=== PATIENT | male | born 1965 | race Caucasian/White ===

== ENCOUNTER 2018-08-09 17:24 | Emergency (ER) | payer OTHER, BC | END 2018-08-09 18:54 | disposition home or self-care (01) | LOC: JERFT 17:24 ==

== ENCOUNTER 2018-08-14 06:32 | Day surgery (SDC) | payer OTHER ==
[2018-08-13 16:55] VITALS: BMI 30.5
[2018-08-14] MEDS ORDERED: BUPIVACAINE LIPOSOME/PF (EXPAREL) 266 MG/20 ML VIAL ONE (07:39)
[2018-08-14] MEDS ORDERED: MIDAZOLAM HCL 2 MG/2 ML SINGLE DOSE VIAL ONE ×2 (07:40)
[2018-08-14] MEDS ORDERED: BUPIVACAINE HCL/PF 0.5% (5MG/ML) 10 ML VIAL ONE (08:07)
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
[2018-08-14] MEDS ORDERED: ceFAZolin SODIUM 1 GM VIAL ONE (08:27)
[2018-08-14] MEDS ORDERED: ceFAZolin SODIUM 1 GM VIAL IVPB ONE (08:38)
[2018-08-14] MEDS ORDERED: PROPOFOL 20 ML ONE ×2 (08:43)
[2018-08-14] MEDS ORDERED: DEXAMETHASONE SOD PHOSPHATE 4 MG/1 ML VIAL ONE (09:23)
--- NOTE | 2018-08-14 09:32 | OP ---
Operative Note - Note: Operative Date: 08/14/18 ([facility]) Pre-Operative Diagnosis: left distal fibula fx Operation: left distal fibula ORIF Post-Operative Diagnosis: Same as Pre-op Surgeon: Gavino Miller [id number] Armor Crewman: Robby Tom Anesthesiologist/MONITOR CAR OPERATOR: Mari Dalal Anesthesia: Local, MAC Estimated Blood Loss (mls): 0 (tourniquet) Operative Report Dictated: Yes
[2018-08-14] MEDS ORDERED: oxyCODONE HCL 5 MG TABLET PO PRN (09:33)
[2018-08-14] MEDS ORDERED: ONDANSETRON 4 MG/2 ML VIAL IVPUSH PRN (09:33)
[2018-08-14] MEDS ORDERED: LACTATED RINGERS SOLUTION 1,000 ML IV SCH (09:45)
--- NOTE | 2018-08-14 10:03 | OP ---
DATE OF OPERATION: 08/14/2018 PREOPERATIVE DIAGNOSIS: Left ankle fracture/distal fibular fracture. POSTOPERATIVE DIAGNOSIS: Left ankle fracture/distal fibular fracture. PROCEDURE: Left ankle open reduction and internal fixation/distal fibular open reduction and internal fixation. SURGEON: Gavino Miller MD SALESPERSON RECREATIONAL VEHICLES: JESS Morales ANESTHESIOLOGIST: ANESTHESIA: Left regional block plus spinal anesthesia plus sedation. DRAINS: None. COMPLICATIONS: None. FLUID REPLACEMENT: Plasma-Lyte 700 mL. SPECIMEN: None. BLOOD LOSS: None. BLOOD GIVEN: None. This patient is a 53-year-old male with the preoperative diagnosis of an acute, recent left ankle distal fibular fracture. After understanding the potential risks, complications, alternatives and benefits of surgery versus nonsurgical treatment, the patient elected to undergo this procedure. Patient was brought to the operating room. Peripheral IV placed. IV sedation given. Two grams of IV Ancef were given. A left regional block was performed, and then, a spinal anesthetic was performed. He was placed into the supine position with ample padding around his left thigh. MAC anesthesia was induced. Left lower extremity was then prepped and draped in sterile fashion, elevated, exsanguinated with an Esmarch bandage and tourniquet inflated to 275 mmHg. The distal fibula was marked out with a marking pen and incision marked out with a marking pen. The incision made with a number-15 scalpel blade. Subcutaneous hemostasis achieved with the Bovie cautery. Dissection done down to the distal fibula. Periosteal incision was made. A subperiosteal dissection was done with a periosteal elevator. This revealed the fracture site. The bone was cleared both distal and proximal to the fracture site. The area was copiously irrigated and washed out and a small curette used to remove hematoma, periosteum, and muscle debris. I then able to do an excellent anatomic reduction, confirmed by AP, lateral, and multiple oblique x-rays. It was held together with the lobster forceps. I then put a lag screw in in standard fashion, first using the 2.6-mm drill bit, then overdrilling the first cortex with a 3.5-mm drill and putting in a fully-threaded bicortical, I think it was a, 24-mm screw. I then removed the clamps. The fracture held. X-rays were taken. There was anatomic reduction. I then put on a Alexander low-profile titanium VariAx pre-contoured distal fibular plate. It was held in place with 2 K-wires. I put in 1 screw proximal to the fracture site, which was 16 mm in length, bicortical and non-locking. Put in 1 unicortical, 16-mm screw distal. It held. X-rays were taken. The position of the hardware and the fracture fragments were quite good. The pins were removed, and then, 2 more unicortical locking screws were placed distal to the fracture site and a total of 4 screws, one non-locking, three locking, all bicortical of 16, 14, 14, and 12 mm in length were placed proximal to the fracture site. It all came together quite nicely. X-rays were taken. The position of the fracture fragments and the hardware was all quite good and confirmed by C-arm fluoroscopy. The area was copiously irrigated and washed out. The periosteum closed over the plate with 2-0 Vicryl. The deep dermal layer closed with 2-0 Vicryl. Final skin reapproximation was done with keith. The area was then washed and dried, covered with Xeroform, 4 x 4, Webril. A 6-inch Ortho-Glass posterior splint was applied and wrapped with 3 Romeo bandages. The tourniquet was taken down after a total tourniquet time of 35 minutes. There were no complications during the case. The patient tolerated the procedure quite well and was brought to the ambulatory recovery room in stable condition. Aby [id number]
[2018-08-14 16:02] VITALS: BP 138/76; PULSE 92; TEMP 98.1
--- NOTE | 2018-08-18 11:30 | EKG ---
Test Reason : Blood Pressure : / mmHG Vent. Rate : 066 BPM Atrial Rate : 066 BPM P-R Int : 142 ms QRS Dur : 094 ms QT Int : 384 ms P-R-T Axes : 013 -05 014 degrees QTc Int : 402 ms NORMAL SINUS RHYTHM NORMAL ECG WHEN COMPARED WITH ECG OF 21-FEB-2003 16:02, NO SIGNIFICANT CHANGE WAS FOUND Confirmed by ARON HOLGUIN MD ([id number]) on 08/18/2018 11:29:57 AM Referred By: Gavino Miller Confirmed By:ARON HOLGUIN MD
== END 2018-08-14 16:15 | disposition home or self-care (01) ==
LOC: JASU-SURG 06:32
PROVIDERS: ATTEND Orthopaedic Surgery
PROC: 0QSK04Z Reposition Left Fibula with Internal Fixation Device, Open Approach (ICD-10-PCS; principal; 2018-08-14 08:00)
DX: S82.62XA Displaced fracture of lateral malleolus of left fibula, initial encounter for closed fracture (principal); X58.XXXA Exposure to other specified factors, initial encounter; Y93.9 Activity, unspecified; Y92.9 Unspecified place or not applicable; Y99.9 Unspecified external cause status
CPT/HCPCS: 27792; C1713; 76000-TC-FY; 93005; 93010; 94760; 97116-GP

== ENCOUNTER 2020-09-04 14:03 | Observation (INO) | payer OTHER ==
[2020-09-04 14:26] VITALS: BMI 32.3
[2020-09-04 15:04] LABS: BASO % 0.7 % (0-2.0); EOS % 0.2 % (0-4.5); HEMATOCRIT 50.3 % (35.4-49); HEMOGLOBIN 17.2 GM/dL (11.7-16.9); LYMPH % 19.9 % (8-40); MCHC 34.3 g/dl (32.0-35.9); MEAN CELL VOLUME 84.5 fl (80-96); MEAN PLT VOLUME 7.5 fl (7.5-11.1); MONO % 6.6 % (3.8-10.2); NEUT % 72.6 % (42.8-82.8); PLATELET COUNT 265 10^3/uL (134-434); RBC 5.95 M/mm3 (4.00-5.60); RDW 13.3 % (11.9-15.9); WHITE BLOOD COUNT 8.6 K/mm3 (4.0-10.0)
[2020-09-04 15:12] LABS: INR 1.1 (0.83-1.09); PROTHROMBIN TIME (PATIENT) 13.3 SEC (9.7-13.0)
[2020-09-04 15:15] LABS: ACTIVATED PTT 27.5 SECONDS (25.2-36.5)
[2020-09-04] MEDS ORDERED: SODIUM CHLORIDE 1,000 ML IV STA (15:16)
[2020-09-04 15:39] LABS: CHLORIDE 110 mmol/L (98-107); SODIUM 141 mmol/L (136-145)
[2020-09-04 15:41] LABS: ALBUMIN 4.6 g/dl (3.4-5.0); ANION GAP 7 MMOL/L (8-16); BLOOD UREA NITROGEN 23.4 mg/dL (7-18); CALCIUM 9.8 mg/dL (8.5-10.1); CO2 25 mmol/L (21-32)
[2020-09-04 15:42] LABS: GLUCOSE,RANDOM 102 mg/dL (74-106)
[2020-09-04 15:45] LABS: CREATININE 1.5 mg/dL (0.55-1.3); SGOT/AST 24 U/L (15-37); SGPT/ALT 51 U/L (13-61)
[2020-09-04 15:46] LABS: BILIRUBIN,TOTAL 0.7 mg/dL (0.2-1); TOT PROT 7.7 g/dl (6.4-8.2)
[2020-09-04 15:47] LABS: ALK PHOS 75 U/L (45-117)
[2020-09-04] MEDS ORDERED: ACETAMINOPHEN 325 MG TABLET (FP) PO PRN (18:21)
[2020-09-04] MEDS ORDERED: SODIUM CHLORIDE 1,000 ML IV SCH (18:30)
[2020-09-04 20:24] LABS: PH,URINE 5.5 (5.0-8.0); URINE APPEARANCE CLOUDY; URINE BILIRUBIN NEGATIVE (NEGATIVE); URINE COLOR YELLOW; URINE GLUCOSE (UA) NEGATIVE (NEGATIVE); URINE KETONE TRACE (NEGATIVE); URINE LEUK ESTERASE NEGATIVE (NEGATIVE); URINE NITRITE NEGATIVE (NEGATIVE); URINE PROTEIN NEGATIVE (NEGATIVE)
[2020-09-04] MEDS ORDERED: ATORVASTATIN CA 40 MG TABLET (FP) ONE (21:32)
[2020-09-04] MEDS ORDERED: ATORVASTATIN CA 40 MG TABLET (FP) PO SCH (22:00)
[2020-09-05 06:57] VITALS: TEMP 97.6
[2020-09-05 08:00] LABS: BASO % 0.9 % (0-2.0); EOS % 1.1 % (0-4.5); HEMATOCRIT 44.6 % (35.4-49); HEMOGLOBIN 15.5 GM/dL (11.7-16.9); LYMPH % 29.6 % (8-40); MCH 29.5 pg (25.7-33.7); MCHC 34.7 g/dl (32.0-35.9); MEAN PLT VOLUME 7.2 fl (7.5-11.1); MONO % 8.3 % (3.8-10.2); NEUT % 60.1 % (42.8-82.8); PLATELET COUNT 226 10^3/uL (134-434); RBC 5.25 M/mm3 (4.00-5.60); RDW 13.2 % (11.9-15.9); WHITE BLOOD COUNT 7.2 K/mm3 (4.0-10.0)
[2020-09-05 08:01] LABS: CHLORIDE 108 mmol/L (98-107); SODIUM 141 mmol/L (136-145)
[2020-09-05 08:22] LABS: ALBUMIN 3.8 g/dl (3.4-5.0); ALK PHOS 67 U/L (45-117); ANION GAP 6 MMOL/L (8-16); BLOOD UREA NITROGEN 22.8 mg/dL (7-18); CALCIUM 9.1 mg/dL (8.5-10.1); CO2 26 mmol/L (21-32); GLUCOSE,RANDOM 94 mg/dL (74-106)
[2020-09-05 08:23] LABS: MAGNESIUM 2.5 mg/dL (1.8-2.4)
[2020-09-05 08:24] LABS: HDL CHOLESTEROL 47 mg/dL (40-60); SGOT/AST 19 U/L (15-37); SGPT/ALT 48 U/L (13-61)
[2020-09-05 08:25] LABS: CHOLESTEROL 186 mg/dL (50-200); CREATININE 1.3 mg/dL (0.55-1.3); LDL CHOLESTEROL (ONLY SJRH) 113 mg/dL (5-100); PHOSPHOROUS 3.1 mg/dL (2.5-4.9); TRIGLYCERIDES 78 mg/dL (0-150)
[2020-09-05 08:26] LABS: TOT PROT 6.6 g/dl (6.4-8.2)
[2020-09-05] MEDS ORDERED: ASPIRIN COATED 81 MG TABLET.EC PO SCH (10:00)
[2020-09-05] MEDS ORDERED: ENOXAPARIN NA (PORCINE) 40 MG/0.4 ML DISP.SYRIN SQ SCH (10:00)
[2020-09-05 12:02] VITALS: BP 129/57; PULSE 73
== END 2020-09-05 12:02 | disposition home or self-care (01) ==
LOC: JER 14:03 → UNDOADMOB 15:57 → JERBED 15:57 → OBSVTOIN 18:21 → INTOOBSV 18:21 → JERBED 09-05 11:53
PROVIDERS: ADMIT Student in an Organized Health Care Education/Training Program; ATTEND Internal Medicine
PROC: 3E0337Z Introduction of Electrolytic and Water Balance Substance into Peripheral Vein, Percutaneous Approach (ICD-10-PCS; principal; 2020-09-05)
PROC: 3E0337Z Introduction of Electrolytic and Water Balance Substance into Peripheral Vein, Percutaneous Approach (ICD-10-PCS; 2020-09-05)
DX: E86.0 Dehydration (principal); R61 Generalized hyperhidrosis; T67.5XXA Heat exhaustion, unspecified, initial encounter; I10 Essential (primary) hypertension; G47.33 Obstructive sleep apnea (adult) (pediatric); E78.00 Pure hypercholesterolemia, unspecified; E78.5 Hyperlipidemia, unspecified
CPT/HCPCS: 36415; 71045-TC-FY; 80053; 80061; 81003; 83605; 83721; 83735; 84100; 84443; 84484; 85025; 85610; 85730; 87040; 93005; 93010; 96360; 96361; 99285-25; C9803; G0378; U0003; U0005